=== PATIENT | male | born 1940 | race Caucasian/White ===

== ENCOUNTER 2018-09-24 08:54 | Emergency (ER) | payer MEDICARE ==
[~2018-09-24] VITALS: Ht 182.9 cm; Wt 75.0 kg
[2018-09-24] MEDS ORDERED: DOXYCYCL HYC100 MG PO (10:10)
[2018-09-24 10:23] VITALS: BP 135/77
== END 2018-09-24 10:37 | disposition home or self-care (01) ==
LOC: ED 08:54
PROC: 0HQ1XZZ Repair Face Skin, External Approach (ICD-10-PCS; principal; 2018-09-24)
DX: S01.81XA Laceration without foreign body of other part of head, initial encounter (principal); S80.212A Abrasion, left knee, initial encounter; W17.89XA Other fall from one level to another, initial encounter; W26.8XXA Contact with other sharp object(s), not elsewhere classified, initial encounter; Y93.K1 Activity, walking an animal; Y92.009 Unspecified place in unspecified non-institutional (private) residence as the place of occurrence of the external cause

== ENCOUNTER 2018-10-03 09:46 | Emergency (ER) | payer MEDICARE ==
[~2018-10-03] VITALS: Ht 182.9 cm; Wt 80.0 kg
[~2018-10-03 09:46] MED LIST: DOXYCYCL HYC100 MG PO
[2018-10-03 10:33] VITALS: BP 122/65
== END 2018-10-03 10:49 | disposition home or self-care (01) ==
LOC: ED 09:46
DX: S01.80XD Unspecified open wound of other part of head, subsequent encounter (principal); X58.XXXD Exposure to other specified factors, subsequent encounter